=== PATIENT | female | born 1975 | race Caucasian/White ===

== ENCOUNTER → 2016-11-13 | Outpatient (CLI) | payer OTHER ==
--- NOTE | 2016-11-14 07:05 | US ---
EXAMINATION TYPE: US transvaginal DATE OF EXAM: 11/13/2016 COMPARISON: 09/19/2011 CLINICAL HISTORY: R10.2 ABD Pain, N92.6 Irregular Menses, left pelvic pain, bloating TECHNIQUE: Transvaginal (TV) Date of LMP: 11-01-16 EXAM MEASUREMENTS: Uterus: 8.5 x 3.1 x 4.3 cm Endometrial Stripe: 0.5cm cm Right Ovary: 3.4 x 2.5 x 2.4 cm Left Ovary: 3.5 x 2.5 x 2.8 cm 1. Uterus: Anteverted, 2mm cyst in PIA, vs nabothian 2. Endometrium: small amount of fluid in endocervical canal 3. Right Ovary: 2.5 x 1.9 x 2.2cm ovarian cyst 4. Left Ovary: wnl 5. Bilateral Adnexa: wnl 6. Posterior cul-de-sac: wnl No evidence for uterine mass. Endometrium demonstrates a small amount of endocervical canal fluid. Pr obable functional ovarian cyst right ovary. IMPRESSION: 1. Probable functional right ovarian cyst. This could be confirmed with follow-up study in 6 weeks.
== END ==
LOC: RADUSWWP 16:54
PROVIDERS: ATTEND Family Medicine
DX: R10.2 Pelvic and perineal pain (principal); N93.9 Abnormal uterine and vaginal bleeding, unspecified; R14.0 Abdominal distension (gaseous)
CPT/HCPCS: 76830

== ENCOUNTER 2018-10-13 14:22 | Emergency (ER) | payer OTHER ==
[2018-10-13] MEDS ORDERED: LIDOCAINE 1% INJ 10MG/ML (20 ML MDV) SQ ONE (14:34)
[2018-10-13] MEDS ORDERED: DIPH,PERTUS(ACELL)TETVAC-LF 0.5 ML VIAL IM ONE (14:42)
[2018-10-13 14:48] VITALS: BP 126/83; PULSE 91; RESP 18; TEMP 97.4
[2018-10-13] MEDS ORDERED: CEPHALEXIN 500MG STARTER PACK 4 CAP BTL PO STA (15:10)
--- NOTE | 2018-10-13 15:24 | ED ---
General Adult HPI - General Chief complaint: Wound/Laceration Stated complaint: CUT FINGER Time Seen by Provider: 10/13/18 14:32 Source: patient Mode of arrival: ambulatory Limitations: no limitations - History of Present Illness Initial comments: Patient is a 42-year-old female presenting to emergency Department with a chief complaint of a laceration. Patient reports she was cutting using a box knife when she lacerated the posterior aspect of the left first digit. Patient reports she is unable to fully extend the left digit. Patient reports mild numbness and tingling. Patient is not on blood thinners. Patient is unaware of her tetanus status. Patient reports the pain is a 4 and throbbing. Patient reports the pain is alleviated with no movement. - Related Data Previous Rx's Medication Instructions Recorded Cephalexin [Keflex] 500 mg PO Q6HR #40 cap 10/13/18 Hydrocodone/Acetaminophen [Alexis 1 each PO Q6HR PRN #15 tab 10/14/18 5-325] Allergies Allergy/AdvReac Type Severity Reaction Status Date / Time Penicillins Allergy Rash/Hives Verified 02/26/16 07:35 Review of Systems ROS Statement: Those systems with pertinent positive or pertinent negative responses have been documented in the HPI. ROS Other: All systems not noted in ROS Statement are negative. Past Medical History Past Medical History: No Reported History History of Any Multi-Drug Resistant Organisms: None Reported Past Surgical History: Orthopedic Surgery, Tonsillectomy Past Psychological History: No Psychological Hx Reported Smoking Status: Never smoker Past Alcohol Use History: None Reported Past Drug Use History: None Reported General Exam - General Exam Comments Initial Comments: General: Well-developed well-nourished distress HEENT: Normocephalic/atraumatic, PERLL, pharynx erythema, swallowing well, EAC no erythema, no exudates, TM clear, no cervical lymph nodes Neck: Supple, nontender, trachea midline Chest/Lungs: Normal respirations, no signs of respiratory distress clear to auscultation bilaterally no wheezes, rales, rhonchi Cardiac: Regular rate and rhythm, normal S1-S2, no murmurs rubs or gallops Abdomen/GI: Soft nontender, bowel sounds equal or quadrant x4, no guarding, no rebound no CVA tenderness Musculoskeletal: 2 cm laceration on the posterior aspect of the left first digit, active bleeding, inability to extend left arm, no edema or erythema Skin: Warmth, no rashes or lesions, no cyanosis or diaphoresis Neurologic: AAO x 3, CN 2-12 intact, Psychiatric: Mood and affect normal, judgment normal Limitations: no limitations Course Vital Signs 10/13/18 14:25 Temperature 97.4 F L Pulse Rate 91 Respiratory 18 Rate Blood Pressure 126/83 O2 Sat by Pulse 98 Oximetry Procedures - Laceration Laceration #1 Consent Obtained: verbal consent Indication: laceration Site: other (Left thumb) Size (cm): 2 Description: linear Depth: simple, single layer Sedation/Analgesia: none Anesthetic Used: lidocaine 1% Anesthesia Technique: local infiltration Amount (mls): 5 Pre-repair: irrigated extensively Type of Sutures: nylon Size of Sutures: 4-0 Number of Sutures: 4 Technique: simple, interrupted Patient Tolerated Procedure: well Medical Decision Making - Medical Decision Making patient is a 42-year-old female presenting to emergency Department with a chief complaint of a laceration. Patient tolerated the procedure well. Laceration site was repaired with 4 sutures. Patient was given tetanus status. Patient appears to have extensor tendon injury due to her inability to extend the thumb. Patient already contacted Dr Carter who suggested patient be placed on Keflex along with a thumb spica. Patient will be seen tomorrow for surgical treatment. Patient advised to return to emergency department in 10-14 days for suture removal. Strict return parameters were thoroughly discussed patient was understanding and agreeable. Case discussed with physician Disposition Clinical Impression: Laceration Disposition: HOME SELF-CARE Condition: Serious Instructions (If sedation given, give patient instructions): Care For Your Stitches (DC), Laceration (DC) Additional Instructions: Please take prescribed medication as directed. Please follow with orthopedics. Please to emergency department in 10-14 days for suture removal or sooner if symptoms worsen. Prescriptions: Cephalexin [Keflex] 500 mg PO Q6HR #40 cap Is patient prescribed a controlled substance at d/c from ED?: No Referrals: Nay Brewster NPC [Primary Care Provider] - 1-2 days Time of Disposition: 15:24
== END 2018-10-13 15:30 | disposition home or self-care (01) ==
LOC: EC 14:22
DX: S61.012A Laceration without foreign body of left thumb without damage to nail, initial encounter (principal); Z88.0 Allergy status to penicillin; Z23 Encounter for immunization; W26.0XXA Contact with knife, initial encounter; Y93.89 Activity, other specified; Y92.009 Unspecified place in unspecified non-institutional (private) residence as the place of occurrence of the external cause
CPT/HCPCS: 99282; 12001; 90471; 90715; J2001

== ENCOUNTER 2018-10-14 12:59 | Day surgery (SDC) | payer OTHER ==
[2018-10-14] MEDS ORDERED: LACTATED RINGERS 1,000 ML IV ONE (13:45)
[2018-10-14] MEDS ORDERED: LIDOCAINE 1% 20 ML VIAL (10MG/ML) FOR IV START INTRADERMA ONE (13:46)
[2018-10-14] MEDS ORDERED: DEXAMETHASONE SOD PHOSPHATE 10 MG/ML 1 ML VIAL IV ONE (13:49)
[2018-10-14] MEDS ORDERED: ONDANSETRON 4 MG/2 ML VIAL IVP ONE ×2 (13:51→16:28)
[2018-10-14] MEDS ORDERED: SCOPOLAMINE 1.5MG/72HR PATCH TRANSDERM ONE (13:52)
--- NOTE | 2018-10-14 14:55 | P.HPOR ---
History of Present Illness H&P Date: 10/14/18 Chief Complaint: Left thumb laceration/extensor tendon laceration 43-year-old patient sustained a laceration to the dorsal aspect of her left thumb yesterday. She was found to have an extensor tendon laceration. I discussed extensor tendon repair. I discussed the procedure, risks, complications and recovery. Patient was agreeable. Consent was obtained. Past Medical History Past Medical History: No Reported History History of Any Multi-Drug Resistant Organisms: None Reported Past Surgical History: Orthopedic Surgery, Tonsillectomy Past Anesthesia/Blood Transfusion Reactions: Motion Sickness Past Psychological History: No Psychological Hx Reported Smoking Status: Never smoker Past Alcohol Use History: None Reported Past Drug Use History: None Reported Medications and Allergies Home Medications Medication Instructions Recorded Confirmed Type Cephalexin [Keflex] 500 mg PO Q6HR #40 cap 10/13/18 10/14/18 Rx Allergies Allergy/AdvReac Type Severity Reaction Status Date / Time Penicillins Allergy Rash/Hives Verified 02/26/16 07:35 Physical Examination Osteopathic Statement: *. No significant issues noted on an osteopathic structural exam other than those noted in the History and Physical/Consult. There is a dorsal laceration measuring 2 cm over the left thumb just proximal to the IP joint. The patient is unable to extend the thumb. The patient 7 area of numbness along the dorsum of the thumb as well. There is good perfusion. There is good sensation on the volar aspect. Assessment and Plan Assessment: Left thumb extensor tendon laceration Plan: Repair left thumb extensor tendon laceration
[2018-10-14] MEDS ORDERED: PROPOFOL 10 MG/ML 20 ML VIAL IV ONE (15:04)
[2018-10-14] MEDS ORDERED: fentaNYL (PF) 50 MCG/ML 2 ML AMP ONE (15:04)
[2018-10-14] MEDS ORDERED: MIDAZOLAM 2 MG/2 ML VIAL ONE (15:04)
[2018-10-14] MEDS ORDERED: ceFAZolin 1,000 MG in SODIUM CHLORIDE 0.9% 1,000 ML IRRIGATION ONE (15:04)
[2018-10-14] MEDS ORDERED: LIDOCAINE 1% INJ 10MG/ML (20 ML MDV) ONE (15:04)
[2018-10-14] MEDS ORDERED: BUPIVACAINE (PF) 0.25% 30 ML VIAL SQ ONE ×2 (15:30→15:50)
--- NOTE | 2018-10-14 16:08 | P.OP ---
Date of Procedure: 10/14/18 Preoperative Diagnosis: Left thumb extensor tendon laceration Postoperative Diagnosis: Left thumb extensor tendon laceration Procedure(s) Performed: Repair left thumb extensor tendon laceration Anesthesia: DEON Surgeon: Kimani Carter Estimated Blood Loss (ml): 1 Pathology: none sent Condition: stable Disposition: PACU Indications for Procedure: 43-year-old patient seen with a left thumb extensor tendon laceration. I recommended repair. Patient was agreeable and consent was obtained. Operative Findings: See description of procedure Description of Procedure: The patient was taken to the operative suite. The patient underwent a general anesthetic by the department of anesthesia. The patient received preoperative IV antibiotics. A well-padded tourniquet was placed along the proximal left upper extremity. The left upper extremity was prepped and draped in the normal sterile orthopedic fashion. The extremity was elevated and tourniquet was insufflated to 250. The wound was now explored. There was about a 2 cm oblique laceration just proximal to the IP joint dorsally. I visualized a complete extensor tendon laceration. I now extended the laceration distally by 1 cm at a 90 angle at the tip of the laceration. I extended the laceration proximally about 2 cm again had a 90 angle to the tip of the laceration. I now was able to grasp the retracted tendon bringing it into the operative field. We ir rigated the wound out with a antibiotic saline solution. I now repaired the tendon with a 3-0 Prolene utilizing a modified Vasquez type stitch. We had good repair of the tendon. I oversewed this repair with 3 horizontal mattress 3-0 Vicryl sutures. It appeared we had full extension of the thumb. There was good repair of the tendon. The wound was irrigated. The skin margins were proximal nylon suture. I infiltrated the incision area with approximately 10 mL of quarter percent plain Marcaine. Sterile dressings were applied. The tourniquet was loosened me capillary refill of all digits noted. Sterile dressings were applied. Patient was placed into a modified well-padded thumb spica splint. The patient was awakened, transferred to a bed and in then taken to recovery in stable condition.
[2018-10-14] MEDS ORDERED: HYDROmorphone 1 MG/ML 1 ML SYRINGE IVP ONE ×2 (16:11→16:23)
[2018-10-14] MEDS ORDERED: KETOROLAC 30 MG/ML 1 ML VIAL IVP ONE (16:15)
[2018-10-14 16:17] VITALS: RESP 16; TEMP 97
[2018-10-14] MEDS ORDERED: HYDROcodone/APAP 5-325MG 1 EACH TAB PO ONE (17:01)
[2018-10-14 17:33] VITALS: BP 115/80; PULSE 92
== END 2018-10-14 18:11 | disposition home or self-care (01) ==
LOC: OR 12:59
PROVIDERS: ATTEND Orthopaedic Surgery
DX: S66.222A Laceration of extensor muscle, fascia and tendon of left thumb at wrist and hand level, initial encounter (principal); S61.012A Laceration without foreign body of left thumb without damage to nail, initial encounter; X58.XXXA Exposure to other specified factors, initial encounter; Z88.0 Allergy status to penicillin
CPT/HCPCS: 26418; 81025; J2250; J1100; J0690 ×2; J2405; J2001; J3010; J1885; J1170; J2704

== ENCOUNTER → 2022-01-14 | Outpatient (CLI) | payer OTHER | END | disposition home or self-care (01) | LOC: LABWHC1 08:39 | PROVIDERS: ATTEND Family Medicine | DX: Z53.9 Procedure and treatment not carried out, unspecified reason (principal) ==

== ENCOUNTER → 2022-02-10 | Outpatient (CLI) | payer OTHER ==
--- NOTE | 2022-02-10 11:56 | US ---
EXAMINATION TYPE: Transabdominal DATE OF EXAM: 02/10/2022 11:37 AM COMPARISON: NONE CLINICAL HISTORY: O20.0, R10.9. Vaginal bleeding and cramping 2 days ago. Positive beta hCG test. EXAM PERFORMED: Transvaginal (TV) and Transabdominal (TA) EXAM MEASUREMENTS: GESTATIONAL AGE / DATING Physician Established: Not yet established Dates by LMP: (8 weeks/5 days) EDC: 09/17/22 Dates by First Scan: No previous this is first scan Dates by Current Scan for: No IUP seen at this time MATERNAL ANATOMY Uterus: 7.5 x 4.1 x 5.7cm Right Ovary: 3.2 x 2.0 x 2.1cm Left Ovary: 3.9 x 2.1 x 3.3cm Post CDS / Adnexa: appears wnl Presence of free fluid: no Presence of corpus luteal cyst: hypoechoic area left ovary = 1.8 x 1.4 x 1.6cm GESTATION / SURVEY IUP: No IUP seen at this time *Heterogeneous, thickened endometrium Date of LMP: 12/11/21 Beta HcG (if available): Not available at this time Heterogeneous anteverted uterus with thickened endometrium up to 16 mm. No gestational sac, yolk sac, or pole. No free fluid. Both ovaries are seen. Within the left ovary there is hypoechoic 1.8 cm peripheral lesion could refle ct corpus luteal cyst. No extraovarian adnexal masses. IMPRESSION: Findings favored too early to visualize intrauterine but spontaneous i s in differential and ectopic is not entirely excluded. Serial beta hCG and ultrasound foll ow-up is advised.
== END | disposition home or self-care (01) ==
LOC: RADUSWWP 10:39
PROVIDERS: ATTEND Nurse Practitioner Family
DX: O20.0 Threatened abortion (principal)
CPT/HCPCS: 76801; 76817; 84144; 84702